=== PATIENT | male | born 1970 | race Caucasian/White ===

== ENCOUNTER 2024-10-05 14:39 | Emergency (ER) | payer OTHER, SELFPAY ==
[2024-10-05 14:46] VITALS: BP 143/74
[2024-10-05 15:01] LABS: % Basophils 0.8 % (0-2); % Eosinophils 0.6 % (0-6); % Immature Granulocytes 0.3 % (0-0.5); % Lymphocytes 17.8 % (20.5-51.1); % Monocytes 6.8 % (1.7-9.3); % Neutrophils 73.7 % (42.2-75.2); Absolute Basophils 0.1 10^3/uL (0-0.2); Absolute Eosinophils 0.1 10^3/uL (0-0.7); Absolute Lymphocytes 1.4 10^3/uL (1.2-3.4); Absolute Monocytes 0.5 10^3/uL (0.1-0.6); Absolute Neutrophils 5.7 10^3/uL (1.4-6.5); Hematocrit 47.2 % (39.0-52.0); Hemoglobin 16.4 g/dL (13.0-18.0); Mean Corp Hgb Conc. 34.7 g/dL (33.0-37.0); Mean Corpuscular Hgb 30.8 pg (27.0-31.0); Mean Corpuscular Volume 88.7 fL (80.0-94.0); Mean Platelet Volume 10.1 fL (7.4-10.4); Nucleated Red Blood Cells % 0 % (-); Platelet Count 225 10^3/uL (130-400); Red Blood Cell Count 5.32 10^6/uL (4.70-6.10); Red Cell Dist. Width 13.2 % (11.5-14.5); White Blood Cell Count 7.8 10^3/uL (4.8-10.8)
[2024-10-05 15:17] LABS: ALT (SGPT) 25 U/L (0-50); AST (SGOT) 18 U/L (17-59); Alkaline Phosphatase 76 U/L (38-126); Blood Urea Nitrogen 15 mg/dl (9-20); Calcium 9.3 mg/dl (8.4-10.2); Carbon Dioxide 25 mmol/L (22-30); Chloride 107 mmol/L (98-107); Glucose 171 mg/dl (70-99); Potassium 4.2 mmol/L (3.5-5.1); Sodium 140 mmol/L (135-145); Total Bilirubin 1.1 mg/dl (0.2-1.3); Total Protein 7.3 g/dl (6.3-8.2); eGFR > 60.00
[2024-10-05 15:28] LABS: Troponin I < 0.012 ng/ml
[2024-10-05 16:52] VITALS: BP 105/68
[2024-10-05 17:34] VITALS: BP 107/80
--- NOTE | 2024-10-05 17:38 | ED.GENMED ---
History of Present Illness
General
Chief Complaint: Chest Pain
Source: patient
Exam Limitations: none
Time Seen by Provider: 10/05/24 17:26
Nursing documentation reviewed up to this point in time: agreed with
History of Present Illness
History of Present Illness:
Patient to ED for paplpitations and elevated BP reading. States symptoms started last PM. States he felt left sided palpitations and felt sensation into left side of neck. Denies any cp/pressure, SOB. No n/v/diaphoresis. States he checked his BP
and it was 150/80, Hr 106. He states the palpations became less and less but were still present this AM. Brought self to ED for eval. Currently asymptomtic.
Past History
Past History
ED Past Medical History: Hypercholesterolemia
ED Past Surgical History: Appendectomy and Urological (varicocele)
Social History
Tobacco: Non-smoker
Alcohol: Occasional
Drug: None
Personal:
Living: with family
Employment: Employed
Family History
Family History: Cancer (Lung cancer, mother smoker); Negative Early CAD or CAD
Review of Systems
Review of Systems
Allergies reviewed?: Yes
All Other Systems: ROS reviewed and negative except as documented in HPI and ROS
Constitutional: Reports no symptoms
EENT: Reports no symptoms
Respiratory: Reports no symptoms
Cardiac: Reports palpitations
ABD/GI: Reports no symptoms
: Reports no symptoms
Musculoskeletal: Reports no symptoms
Skin: Reports no symptoms
Neurological: Reports no symptoms
Psychiatric: Reports no symptoms
Phy Exam
General Physical Exam
General Presentation: well appearing and no apparent distress
General age: appears stated age
General Skin: warm and dry
General Habitus: normal
Cardiovascular Exam
Cardiovascular Exam: regular rate/rhythm and no edema
Pulmonary Exam
Pulmonary Exam: lungs clear and no respiratory distress
Musculoskeletal Exam
Musculoskeletal Exam: full ROM and neuro vasc intact
Skin Exam
Skin Exam: normal color, warm/dry and no rash
Psychiatric Exam
Psychiatric Exam: normal mood/affect
Scores
Heart Score for Chest Pain Patients
STEMI patient?: No
History: Slightly or Non-Suspicious
ECG: Normal
Age: >45 - <65 years
Risk Factors: 1 or 2 Risk Factors
Troponin: </= Normal Limit
Heart Score for Chest Pain Patients: 2
Heart Score Risk: 2.5% MACE over next 6 weeks
Course
Orders/Labs/Results
Orders:
Orders
10/05/24 14:40
EKG [Electrocardiogram (*1)] Urgent
Reason for Study: Chest Pain
EKG- Treatment ONCE
10/05/24 14:56
Complete Blood Count/With Diff Urgent
Comprehensive Metabolic Panel Urgent
Troponin I Urgent
10/05/24 17:39
Troponin I Urgent
Abnormal Lab Results
10/05/24
14:56
Lymphocytes % 17.8 L %
(20.5-51.1)
Glucose 171 H mg/dl
(70-99)
10/05/24 14:56
10/05/24 14:56
Vital Signs
Initial and Last Documented VS:
Initial Vital Signs
Temp Pulse Resp BP Pulse Ox
98.1 F 90 20 143/74 99
10/05/24 14:46 10/05/24 14:46 10/05/24 14:46 10/05/24 14:46 10/05/24 14:46
Last Documented Vital Signs
Temp Pulse Resp BP Pulse Ox
98.1 F 62 13 111/74 96
10/05/24 14:46 10/05/24 18:15 10/05/24 18:15 10/05/24 18:00 10/05/24 18:15
*Pulse Oximetry
Patient hypoxic: no
*EKG
Interpretation: normal
Comparison EKG: no comparison EKG present
Rate: normal
Rhythm: sinus
*Critical Care Note
Total Time (30-74mins, 75-104mins- exclusive of procedures): Not Applicable
Update Note
Update Note:
Patient to ED [facility] report of palpitations, elevated BP reading last PM into this AM. No cp/pressure, SOB, n/v/diaphoresis. He has remained asymptomatic VSS, EKG NSR, troponin neg. x2, CBC/chem WNL. He is discharged home and will follow p wtih
PCP. Given instructons on s/s to return to ED and he is agreeable to plan.
ED Attending Note
-
Portions of this chart may have been created with voice recognition software.� Occasional wrong word or��sound alike� substitutions may have occurred due to the inherent limitations of voice recognition software.
Discharge Plan
Departure
Patient Disposition: Home (Routine Discharge)
Date of Disposition: 10/05/24
Time of Disposition: 18:23
Patient with high blood pressure during this ER visit?: No
Condition: Good
Covid-19: Not Applicable
Discharge Problem:
Palpitations
Instructions: Palpitations
Prescriptions:
No Action
atorvastatin 40 MG tablet
40 mg PO QPM
Activity Restrictions/Additional Instructions:
Follow up with your family doctor in 1-2 days. Return to the emergency department immediately for any changes in/worsening of your symptoms.
Interventions
Interventions:
*Risk Screen - Suicide Last Done: 10/05/24 14:46
*General Assessment Last Done: 10/05/24 14:46
*Neglect/Abuse Screening Last Done: 10/05/24 14:46
*ED- Fall Risk Assessment Last Done: 10/05/24 16:58
*ED COVID-19 Vaccine History Last Done: 10/05/24 16:58
ED- Cardiac Assessment Last Done: 10/05/24 16:58
Discharge Date and Time
Print Language: SLOVENIAN
[2024-10-05 18:00] VITALS: BP 111/74
[2024-10-05 18:12] LABS: Troponin I < 0.012 ng/ml
== END 2024-10-05 18:34 | disposition home or self-care (01) ==
LOC: EMR 14:39
PROVIDERS: Emergency Medicine; Nurse Practitioner; EMERGENCY PHYSICIAN Emergency Medicine; FAMILY PHYSICIAN Family Medicine
DX: R00.2 Palpitations (principal); E78.00 Pure hypercholesterolemia, unspecified; Z80.1 Family history of malignant neoplasm of trachea, bronchus and lung; Z90.49 Acquired absence of other specified parts of digestive tract
CPT/HCPCS: 99283; 80053; 84484; 85025; 93005